=== PATIENT | male | born 1970 | race Caucasian/White ===

== ENCOUNTER 2018-02-17 12:39 | Day surgery (SDC) | payer MEDICARE ==
[~2018-02-17 12:39] MED LIST: ACETAMINOPHEN 1,000 MG/100 ML BTL IV ONE; CEFAZOLIN 2 Gram 2 GM/50 ML BAG IVPB ONE; ENOXAPARIN 40 MG/0.4 ML SYR SQ ONE; FAMOTIDINE 20MG TABLET PO ONE; MECLIZINE 25 MG TABLET PO ONE; METOCLOPRAMIDE 10 MG TABLET PO ONE
[2018-02-17] MEDS ORDERED: SEVOFLURANE 250 ML INH ONE (12:40)
[2018-02-17] MEDS ORDERED: KETOROLAC 30 MG/ML VIAL IVP ONE (12:40)
[2018-02-17] MEDS ORDERED: MORPHINE SULFATE 4MG/ML PREFILLED SYRINGE IVP ONE (12:40)
[2018-02-17] MEDS ORDERED: LIDOCAINE 2% MDV (20MG/ML) 20ML VIAL IV ONE (12:40)
[2018-02-17] MEDS ORDERED: PROPOFOL 10 MG/ML VIAL IV ONE (12:40)
[2018-02-17] MEDS ORDERED: BUPIVACAINE 0.5% W/EPI MPF 30 ML VIAL IVP ONE (12:40)
[2018-02-17] MEDS ORDERED: MIDAZOLAM HCL 2MG/2ML VIAL IV ONE (12:40)
[2018-02-17] MEDS ORDERED: LABETALOL HCL 5MG/ML, 20ML VIAL IV ONE (12:40)
[2018-02-17] MEDS ORDERED: METHYLPREDNISOLONE 40MG/VIAL IM ONE (12:40)
[2018-02-17] MEDS ORDERED: HYDROMORPHONE HCL 2 MG/ML VIAL IV ONE (12:40)
--- NOTE | 2018-02-19 23:28 | Operative Note ---
DATE OF SURGERY: 02/17/18 PREOPERATIVE DIAGNOSIS: INTERNAL DERANGEMENT OF THE RIGHT KNEE. POSTOPERATIVE DIAGNOSES: 1. DIFFUSE SYNOVITIS. 2. GRADE 3 CHONDROMALACIA PATELLA. 3. LARGE CHONDRAL ULCER OF THE MEDIAL FEMORAL CONDYLE WITH GRADE 3 TO 4 CHANGE. 4. SMALL FLAP TEAR INVOLVING THE ANTERIOR MEDIAL HORN OF THE LATERAL MENISCUS. 5. SMALL GRADE 3 CHANGE OF THE LATERAL FEMORAL CONDYLE. PROCEDURE: 1. RIGHT KNEE ARTHROSCOPY WITH PARTIAL LATERAL MENISCECTOMY. 2. RIGHT KNEE ARTHROSCOPY WITH COMPLETE SYNOVECTOMY. 3. RIGHT KNEE ARTHROSCOPY WITH CHONDROPLASTY OF THE MEDIAL FEMORAL CONDYLE AND PATELLA. STAFF SURGEON: REHANA PABLO M.D. ANESTHESIA: GENERAL. PREPARATION: CHLORAPREP. INDIVIDUAL CONSIDERATIONS: NONE. PROCEDURE: The patient was taken to the Operating Room and placed supine on the operating table. He had a successful induction of a general anesthetic. His right lower extremity was prepped and draped in the usual fashion. The patient had a superior lateral inflow cannula placed. The skin was infiltrated with 0.5% Marcaine with Epinephrine prior. A large blood-tinged effusion was drained and the knee was inflated with normal saline. An inferior medial and an inferior lateral portal were made in a similar fashion. The arthroscope was introduced through the inferior lateral portal up into the pouch. The patient had diffuse synovitis. No loose bodies were seen. A synovectomy was performed with a shaver in the pouch and both gutters. She had grade three changes on the patella. The notch had fibrocartilage. The grade 3 changes on the patella were smoothed. Medially, he had a large ulcer involving pretty much all of the medial femoral condyle with cratering and crevicing and loose cartilage. This was smoothed off with a shaver. Some areas were down to bone. The meniscus was otherwise intact. The tibial plateau had a little soft change but otherwise intact. In the notch, the cruciates were normal. Laterally , he had a small flap tear involving the anterior horn of the lateral meniscus and this was debrided with a shaver. The remainder of the meniscus was intact. Small grade 3 centrally on lateral femoral condyle, which was smoothed and an intact tibial plateau. After irrigation, the portals were closed with ludmila and 15 mL of 0.5% Marcaine with Epinephrine along with 4 mg of Morphine and 80 mg of DepoMedrol were injected into the knee and a sterile Bulkee compressive dressing was applied. The patient tolerated the procedure well. Needle and sponge counts were correct. Estimated blood loss was minimal and he was taken back to Recovery in good condition. There were no complications. JOB NUMBER: [id number] MTDD
== END 2018-02-17 16:55 | disposition home or self-care (01) ==
LOC: SUR 12:39
PROVIDERS: ATTEND Orthopaedic Surgery
DX: S83.281A Other tear of lateral meniscus, current injury, right knee, initial encounter (principal); M65.9 Synovitis and tenosynovitis, unspecified; M24.10 Other articular cartilage disorders, unspecified site; M22.41 Chondromalacia patellae, right knee; E11.9 Type 2 diabetes mellitus without complications; Z79.4 Long term (current) use of insulin
CPT/HCPCS: J1030; J1885; J2274